=== PATIENT | female | born 1970 | race Caucasian/White ===

== ENCOUNTER → 2018-10-17 | Outpatient (REF) ==
[~2018-10-17] MED LIST: ALPRAZOLAM0.5 MG PO; AMITRIPTYLINE H50 M1 PO; AMITRIPTYLINE50 MG PO; AMOXICILLIN 8751 TAB PO; DICLOFENAC SOD75 MG PO; IMITREX50 MG PO; NAPROSYN 2250 MG/TAB PO; NORCO 325 MG-51 TAB PO; PAROXETINE20 MG PO
== END ==
LOC: ZLAB.WCH 16:19
DX: Z01.89 Encounter for other specified special examinations (principal)

== ENCOUNTER 2018-10-27 13:26 | Emergency (ER) | payer OTHER ==
[~2018-10-27] VITALS: Ht 160 cm; Wt 84.1 kg
[2018-10-27 13:28] VITALS: TEMP 98.4
[2018-10-27] MEDS ORDERED: TYLENOL 500MG500 MG PO (13:39)
[2018-10-27] MEDS ORDERED: LIPITOR 40MG TA40 MG PO (13:39)
[2018-10-27] MEDS ORDERED: OXY IR5 MG PO (13:40)
[2018-10-27] MEDS ORDERED: XARELTO15 MG PO (13:41)
[2018-10-27 14:15] LABS: BASO # 0.1 (0.0-0.2); BASO % 0.6 % (0.0-2.0); EOS # 0.6 (0.0-0.7); EOS % 3.1 % (0-4.0); GRAN # 15.8 (1.4-6.5); GRAN % 78.8 % (42.2-75.2); LYMPH # 1.8 (1.2-3.4); LYMPH % 8.9 % (20.0-51.0); MEAN CELL VOLUME 93 fl (80.0-100.0); MEAN CORPUSCULAR HGB CONC 33 g/dl (33.0-37.0); MEAN PLATELET VOLUME 9.2 fl (7.4-10.4); MONO # 1.5 (0.1-0.6); MONO % 7.4 % (1.7-9.3); PLATELET COUNT 562 K/mm3 (130-400); RED BLOOD COUNT 3.18 M/mm3 (4.10-5.30); REDCELL DISTRIBUTION WIDTH-CV 12.8 % (11.5-14.5)
[2018-10-27 14:18] LABS: HEMATOCRIT 29.4 % (37.0-47.0); HEMOGLOBIN 9.7 g/dl (12.5-16.0); MEAN CORPUSCULAR HEMOGLOBIN 31 pg (27.0-31.0)
[2018-10-27 14:28] LABS: ALBUMIN 4.1 gm/dL (3.5-5.0); BILIRUBIN,TOTAL 0.3 mg/dL (0.0-1.0); C-REACTIVE PROTEIN 5.8 mg/dL (0.0-0.9); CALCIUM 10.2 mg/dL (8.4-10.2); CREATININE, serum 0.64 mg/dL (0.52-1.25); TOTAL PROTEIN 7.5 gm/dL (6.4-8.2)
[2018-10-27 17:47] VITALS: BP 132/68; PULSE 108
== END 2018-10-27 17:54 | disposition short-term general hospital (02) ==
LOC: COL.ER 13:26
PROVIDERS: Emergency Medicine
DX: I71.00 Dissection of unspecified site of aorta (principal); R11.10 Vomiting, unspecified
CPT/HCPCS: J1170; J2405; J2550; J7030; J7050; Q9967